=== PATIENT | female | born 1940 | race Caucasian/White ===

== ENCOUNTER → 2017-07-15 | Outpatient (CLI) | payer BC | LOC: M.RAD 12:58 | DX: Z12.31 Encounter for screening mammogram for malignant neoplasm of breast (principal) ==

== ENCOUNTER → 2018-08-24 | Outpatient (CLI) | payer BC | LOC: M.RAD 13:01 | DX: Z12.31 Encounter for screening mammogram for malignant neoplasm of breast (principal) ==

== ENCOUNTER → 2019-08-17 | Outpatient (CLI) | payer BC | LOC: M.RAD 12:47 | PROVIDERS: ATTEND Family Medicine | DX: Z12.31 Encounter for screening mammogram for malignant neoplasm of breast (principal) ==

== ENCOUNTER 2019-09-25 13:50 | Emergency (ER) | payer BC ==
[~2019-09-25] VITALS: Ht 157.5 cm; Wt 83.5 kg
[2019-09-25] MEDS ORDERED: CRESTOR20 MG PO (14:03)
[2019-09-25] MEDS ORDERED: VICTOZA0.6 MG/0.1 SUBQ (14:03)
[2019-09-25] MEDS ORDERED: SYNTHROID100 MC1 PO (14:04)
[2019-09-25] MEDS ORDERED: ZESTRIL10 MG PO (14:04)
[2019-09-25] MEDS ORDERED: GLUCOPHAGE1000 MG PO (14:05)
[2019-09-25 15:13] LABS: ABSOLUTE EOSINOPHILS 0.1 thou/uL (0.0-0.7); ABSOLUTE LYMPHOCYTES 1.4 thou/uL (0.8-5.3); ABSOLUTE MONOCYTES 0.4 thou/uL (0.0-1.2); ABSOLUTE NEUTROPHILS 4.2 thou/uL (1.6-8.1); BASOPHILS 0.7 %; HEMATOCRIT 45.7 % (37.0-47.0); HEMOGLOBIN 15.6 gm/dL (12.0-15.0); LYMPHOCYTES 22.3 %; MCH 30.2 pg (26.0-34.0); MCHC 34.2 g/dL (28.0-37.0); MONOCYTES 6.5 %; MPV 7.5 fl. (7.2-11.1); NUCLEATED RBCS 0 /100WBC; PLATELET COUNT* 231 thou/uL (150-400); POLYS 68.5 %; RBC 5.19 mil/uL (4.20-5.00); RDW-CV 14.6 % (10.5-14.5); WBC 6.1 thou/uL (4.0-11.0)
[2019-09-25 15:21] LABS: CALCIUM 9.3 mg/dL (8.5-10.1); CREATININE 1.2 mg/dL (0.6-1.3); POTASSIUM 3.9 mmol/L (3.5-5.1)
[2019-09-25 15:25] LABS: ALBUMIN 3.8 g/dL (3.4-5.0); TOTAL BILIRUBIN 0.5 mg/dL (<0.1-1.0); TOTAL PROTEIN 7.7 g/dL (6.4-8.2)
[2019-09-25 16:24] LABS: URINE BILIRUBIN NEGATIVE (Negative); URINE BLOOD 1+ (Negative); URINE CLARITY CLEAR; URINE COLOR YELLOW; URINE GLUCOSE-RANDOM NEGATIVE (Negative); URINE KETONES NEGATIVE (Negative); URINE LEUKOCYTES-REFLEX NEGATIVE (Negative); URINE NITRITE-REFLEX NEGATIVE (Negative); URINE PROTEIN 1+ (Negative); URINE UROBILINOGEN 0.2 E.U./dl (0.2-1.0)
[2019-09-25] MEDS ORDERED: MECLIZINE HCL25 M1 PO (16:30)
[2019-09-25] MEDS ORDERED: TRANSDERM-SCOP1 EACH TRANSDERM (16:30)
[2019-09-25 16:34] LABS: BACTERIA-REFLEX >30 Many /HPF (None Seen); CASTS None Seen /LPF (None Seen); CRYSTALS None Seen /LPF (None Seen); SQUAMOUS >10 Many /LPF (0-3); URINE RBC 0-2 Rare /HPF (0-2); URINE WBC-REFLEX 0-5 Rare /HPF (0-5)
[2019-09-25 16:40] VITALS: BP 138/77
--- NOTE | 2019-09-25 17:15 | EKG ---
[place] [address] ELECTROCARDIOGRAM REPORT Name: CARY RING I Room: [facility]#: [id number] Admission: 09/25/19 Attend Phys: Discharge: 09/25/19 Date of : 44 Date of Service: 09/25/19 1453 Report #: [id number] THIS REPORT FOR: //name// [facility] ED Test Date: 2019-09-25 Test Time: 14:53:58 Pat Name: CARY RING Department: Room: Gender: F Advisory Software Engineer: [facility] : 1940 Requested By: Johnna Peter Order Number: [id number] MD: Dickson Lee Measurements Intervals [place] Rate: 78 P: 29 UT: 171 QRS: -19 QRSD: 143 T: 113 QT: 423 QTc: 482 Interpretive Statements Sinus rhythm Left bundle branch block Baseline wander in lead(s) V1,V2,V3 No previous ECG available for comparison Electronically Signed On 09-25-2019 17:14:58 CDT by Dickson Lee [email or web address] <ELECTRONICALLY SIGNED> By: Dickson Lee MD, [facility] 09/25/19 1714 1453 1453 Dickson Lee MD, [facility] /EPI
== END 2019-09-25 16:40 | disposition home or self-care (01) ==
LOC: M.ERS 13:50
PROVIDERS: Physician Assistant
DX: S90.32XA Contusion of left foot, initial encounter (principal); R42 Dizziness and giddiness; E11.9 Type 2 diabetes mellitus without complications; Z90.710 Acquired absence of both cervix and uterus; Z90.49 Acquired absence of other specified parts of digestive tract; W18.39XA Other fall on same level, initial encounter; Y93.89 Activity, other specified; Y92.89 Other specified places as the place of occurrence of the external cause; Y99.8 Other external cause status

== ENCOUNTER → 2020-08-16 | Outpatient (CLI) | payer BC ==
[~2020-08-16] MED LIST: CRESTOR20 MG PO; GLUCOPHAGE1000 MG PO; MECLIZINE HCL25 M1 PO; SYNTHROID100 MC1 PO; TRANSDERM-SCOP1 EACH TRANSDERM; VICTOZA0.6 MG/0.1 SUBQ; ZESTRIL10 MG PO
== END ==
LOC: M.RAD 12:35
PROVIDERS: ATTEND Family Medicine
DX: Z12.31 Encounter for screening mammogram for malignant neoplasm of breast (principal)